=== PATIENT | female | born 1990 | race African-American/Black ===

== ENCOUNTER 2022-03-12 11:42 | Day surgery (SDC) | payer OTHER ==
[2022-03-12 12:02] VITALS: BMI 33.6
[2022-03-12] MEDS ORDERED: hydrALAZINE 20 MG/ML VIAL SLOW IVP PRN (12:47)
[2022-03-12] MEDS ORDERED: Acetaminophen 500 MG TAB PO SCH (13:00)
[2022-03-12 13:15] LABS: Bilirubin Neg (Negative); Blood, Urine Negative (Negative); Clarity Clear (Clear); Glucose, Urine (Dipstick) Normal (Negative); Ketone, Urine Negative (Negative); Leukocyte Negative (Negative); Nitrite Negative (Negative); Protein, Urine (Dipstick) 15 mg/dl (Neg-Trace); Specific Gravity, Urine 1.015 (1.002-1.036); Urobilinogen Normal mg/dL (Less than 2); pH, Urine 6.5 (5.0-9.0)
[2022-03-12 13:17] LABS: Urine Culture Reflex No No
[2022-03-12 13:22] LABS: Bacteria/HPF None Seen HPF (None Seen); RBC/HPF None Seen HPF (0-3); Squamous Epithelial 0-3 HPF (0-3); WBC/HPF None Seen HPF (0-3)
[2022-03-12] MEDS ORDERED: Metoclopramide HCl 10 MG TAB PO SCH (14:45)
[2022-03-12] MEDS ORDERED: diphenhydrAMINE 25 MG CAP PO SCH (15:00)
== END 2022-03-12 15:46 | disposition home or self-care (01) ==
LOC: CSHLD/OP 11:42
PROVIDERS: ATTEND Obstetrics & Gynecology
DX: O99.891 Other specified diseases and conditions complicating pregnancy (principal); R10.30 Lower abdominal pain, unspecified; R51.9 Headache, unspecified; O34.211 Maternal care for low transverse scar from previous cesarean delivery; O09.213 Supervision of pregnancy with history of pre-term labor, third trimester; Z3A.36 36 weeks gestation of pregnancy
CPT/HCPCS: 81001; 87480; 87510; 87660

== ENCOUNTER 2022-03-29 09:14 | Outpatient (CLI) | payer OTHER | END 2022-03-29 09:15 | disposition home or self-care (01) | LOC: CSHLAB 09:14 | PROVIDERS: ATTEND Family Medicine | DX: Z53.9 Procedure and treatment not carried out, unspecified reason (principal) | CPT/HCPCS: 85027; 86780; 86850; 86900; 86901; 87340; 87389; U0003; U0005 ==

== ENCOUNTER 2022-03-31 14:30 | Inpatient (IN) | payer OTHER ==
[2022-03-29 10:35] LABS: Hemoglobin 10.7 g/dL (12.0-15.5); Mean Corpuscular HGB CONC 31.8 g/dL (32.0-36.0); Mean Corpuscular Hemoglobin 25.9 pg (27.0-33.0); Mean Corpuscular Volume 81.6 fl (81.6-98.3); Mean Platelet Volume 10.1 fl (7.4-10.4); Platelet Count 219 10x3/uL (150-450); RBC Distribution Width 13.9 % (11.5-14.5); Red Blood Cell (RBC) Count 4.13 10x6/uL (3.90-5.03); White Blood Cell (WBC) Count 8.5 10x3/uL (3.5-10.5)
[2022-03-29 11:14] LABS: Hep B Surf Ag Non-Reactive S/CO (NonReactive)
[2022-03-29 11:16] LABS: Syphilis Antibody Nonreactive (Nonreactive); Syphilis Antibody Index 0.06 S/CO (<1.00 Non-Reactive)
[2022-03-29 11:58] LABS: HBSAg Index 0.17 S/CO (0-0.99)
[2022-03-29 12:48] LABS: HIV (1/2) Antibody/Antigen Non-Reactive (NonReactive); HIV 1/2 INDEX 0.09 S/CO (<1.00)
[2022-03-31] MEDS ORDERED: Bicitra 30 ML UDCUP PO PRN ×2 (15:41→15:52)
[2022-03-31] MEDS ORDERED: hydrALAZINE 20 MG/ML VIAL SLOW IVP PRN ×3 (15:41→20:06)
[2022-03-31] MEDS ORDERED: Famotidine/PF 20 mg/2ml Vial SLOW IVP PRN ×2 (15:41→15:52)
[2022-03-31] MEDS ORDERED: Lactated Ringer's 1,000 ML IV SCH (15:41)
[2022-03-31] MEDS ORDERED: ceFAZolin 2 GM/Dextrose 50 ML 2 GM in Premix Bag 1 BAG IVPB SCH (15:41)
[2022-03-31] MEDS ORDERED: Promethazine HCl 25 MG/ML VIAL IM PRN ×2 (15:41→18:23)
[2022-03-31] MEDS ORDERED: Ondansetron PF 4 MG/2 ML Vial IVP PRN ×3 (15:41→20:06)
[2022-03-31 15:48] VITALS: BMI 34.9
[2022-03-31] MEDS ORDERED: CEFAZOLIN 2 GM VIAL ONE (16:02)
[2022-03-31] MEDS ORDERED: Sodium Chloride 0.9% 50 ML ONE (16:02)
[2022-03-31] MEDS ORDERED: Ondansetron PF 4 MG/2 ML Vial ONE (17:10)
[2022-03-31] MEDS ORDERED: ePHEDrine Sulfate 50 MG/10 ML VIAL ONE (17:10)
[2022-03-31] MEDS ORDERED: Morphine PF 10 MG/10 ML VIAL ONE (17:10)
[2022-03-31] MEDS ORDERED: Dexamethasone 4 mg/ml Vial ONE (17:10)
[2022-03-31] MEDS ORDERED: PHENYLEPHRINE-NS 100 MCG/ML 10 ML SYRINGE ONE (17:10)
[2022-03-31] MEDS ORDERED: Oxytocin 10 UNITS/ML VIAL ONE ×2 (17:10→17:38)
[2022-03-31] MEDS ORDERED: Fentanyl 100 MCG/2 ML VIAL ONE (17:10)
[2022-03-31] MEDS ORDERED: Ketorolac Tromethamine 30 MG/ML VIAL ONE (17:44)
[2022-03-31] MEDS ORDERED: Naloxone HCl 0.4 mg/ml Vial IV PRN (18:23)
[2022-03-31] MEDS ORDERED: diphenhydrAMINE 50 MG/ML VIAL IVP PRN (18:23)
[2022-03-31] MEDS ORDERED: Naloxone HCl 0.4 mg/ml Vial IVP PRN ×2 (18:23)
[2022-03-31] MEDS ORDERED: Promethazine HCl 25 MG SUPP PR PRN (18:23)
[2022-03-31] MEDS ORDERED: Fentanyl 100 MCG/2 ML VIAL SLOW IVP PRN (18:23)
[2022-03-31] MEDS ORDERED: Ketorolac Tromethamine 30 MG/ML VIAL IVP PRN (18:23)
[2022-03-31] MEDS ORDERED: Ondansetron HCl/PF 4 MG/2 ML Vial IVP PRN (18:23)
[2022-03-31] MEDS ORDERED: HYDROmorphone 2 MG/ML VIAL SLOW IVP PRN (18:23)
[2022-03-31] MEDS ORDERED: Moisturizing Cream (Eucerin) 113 GM JAR TOP PRN (18:23)
[2022-03-31] MEDS ORDERED: Meperidine HCl/PF 25 MG/ML VIAL SLOW IVP PRN (18:23)
[2022-03-31] MEDS ORDERED: Ketorolac Tromethamine 30 MG/ML VIAL IVP SCH (18:30)
[2022-03-31] MEDS ORDERED: Communication Order-Pharmacy FS SCH ×2 (18:30→20:15)
[2022-03-31] MEDS ORDERED: cloNIDine 0.1 MG TAB PO PRN (19:29)
[2022-03-31] MEDS ORDERED: HYDROcodone/Acetaminophen 5/325 mg Tablet PO PRN ×2 (20:06)
[2022-03-31] MEDS ORDERED: Boostrix 0.5 ML (Tdap) VIAL IM ONE (20:06)
[2022-03-31] MEDS ORDERED: Bisacodyl 10 MG SUPP PR PRN (20:06)
[2022-03-31] MEDS ORDERED: Simethicone Chewable 80 MG TAB PO PRN (20:06)
[2022-03-31] MEDS ORDERED: Lanolin Ointment 7 GM TUBE TOP PRN (20:06)
[2022-03-31] MEDS ORDERED: diphenhydrAMINE 25 MG CAP PO PRN (20:06)
[2022-03-31] MEDS: Ketorolac Tromethamine 30 MG/ML VIAL IVP SCH (23:01)
[2022-04-01] MEDS ORDERED: Ketorolac Tromethamine 30 MG/ML VIAL IVP SCH (02:00)
[2022-04-01] MEDS: Docusate 100 MG CAP PO SCH ×3 (02:30→21:17)
[2022-04-01] MEDS: Ferrous Sulfate 325 MG TAB PO SCH ×3 (02:30→21:17)
[2022-04-01 04:46] LABS: Hemoglobin 9.8 g/dL (12.0-15.5); Mean Corpuscular HGB CONC 32.2 g/dL (32.0-36.0); Mean Corpuscular Hemoglobin 25.9 pg (27.0-33.0); Mean Corpuscular Volume 80.4 fl (81.6-98.3); Mean Platelet Volume 10.1 fl (7.4-10.4); Platelet Count 191 10x3/uL (150-450); RBC Distribution Width 13.5 % (11.5-14.5); Red Blood Cell (RBC) Count 3.78 10x6/uL (3.90-5.03); White Blood Cell (WBC) Count 12.8 10x3/uL (3.5-10.5)
[2022-04-01] MEDS: Ketorolac Tromethamine 30 MG/ML VIAL IVP SCH ×2 (05:50→11:47)
[2022-04-01] MEDS: Prenatal Vitamin 1 TAB PO SCH (07:51)
[2022-04-01] MEDS ORDERED: NIFEdipine XL 30 MG TAB PO SCH (13:30)
[2022-04-01] MEDS: HYDROcodone/Acetaminophen 5/325 mg Tablet PO PRN (21:18)
[2022-04-01] MEDS: Ibuprofen 800 MG TAB PO SCH (22:15)
[2022-04-02] MEDS: HYDROcodone/Acetaminophen 5/325 mg Tablet PO PRN ×3 (00:44→14:35)
[2022-04-02] MEDS: Ibuprofen 800 MG TAB PO SCH ×3 (06:33→21:33)
[2022-04-02] MEDS: NIFEdipine XL 30 MG TAB PO SCH (08:22)
[2022-04-02] MEDS: Ferrous Sulfate 325 MG TAB PO SCH ×2 (08:23→21:33)
[2022-04-02] MEDS: Docusate 100 MG CAP PO SCH ×2 (08:23→21:33)
[2022-04-02] MEDS: Prenatal Vitamin 1 TAB PO SCH (08:23)
[2022-04-03] MEDS: Ibuprofen 800 MG TAB PO SCH (05:11)
[2022-04-03] MEDS: HYDROcodone/Acetaminophen 5/325 mg Tablet PO PRN ×3 (05:15→12:34)
[2022-04-03 08:27] VITALS: BP 109/62; TEMP 98.4
[2022-04-03] MEDS: NIFEdipine XL 30 MG TAB PO SCH (09:05)
[2022-04-03] MEDS: Docusate 100 MG CAP PO SCH (09:07)
[2022-04-03] MEDS: Ferrous Sulfate 325 MG TAB PO SCH (09:07)
[2022-04-03] MEDS: Prenatal Vitamin 1 TAB PO SCH (09:07)
== END 2022-04-03 13:37 | disposition home or self-care (01) | DRG 788 ==
LOC: CSHLD 14:30 → CSHPED 20:28
PROVIDERS: ADMIT Family Medicine; ATTEND Family Medicine
PROC: 10D00Z1 Extraction of Products of Conception, Low, Open Approach (ICD-10-PCS; principal; 2022-03-31)
DX: O34.211 Maternal care for low transverse scar from previous cesarean delivery (principal); Z20.822 Contact with and (suspected) exposure to COVID-19; Z3A.39 39 weeks gestation of pregnancy; Z37.0 Single live birth; D25.9 Leiomyoma of uterus, unspecified; O34.13 Maternal care for benign tumor of corpus uteri, third trimester
CPT/HCPCS: 36415; 51702; 85027; 86780; 86850; 86900; 86901; 87340; 87389; J0690; J1100; J1885; J2274; J2405; J2590; J3010; S0028; U0003; U0005